=== PATIENT | male | born 2005 | race Caucasian/White ===

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

== ENCOUNTER 2023-01-16 09:15 | Emergency (ER) | payer MEDICAID ==
[~2023-01-16] VITALS: Ht 172.7 cm; Wt 123.2 kg
[2023-01-16 09:30] VITALS: TEMP 98.1
[2023-01-16] MEDS ORDERED: ATARAX 25MG25 MG/TAB PO (09:54)
[2023-01-16 10:09] VITALS: BP 143/81; PULSE 60
== END 2023-01-16 10:09 | disposition home or self-care (01) ==
LOC: COL.ER 09:15
DX: F41.0 Panic disorder [episodic paroxysmal anxiety] (principal); F32.A Depression, unspecified; T43.206A Underdosing of unspecified antidepressants, initial encounter; T43.506A Underdosing of unspecified antipsychotics and neuroleptics, initial encounter; Z91.128 Patient's intentional underdosing of medication regimen for other reason